=== PATIENT | male | born 1960 | race Caucasian/White ===

== ENCOUNTER → 2018-12-15 | Outpatient (CLI) | payer BC ==
--- NOTE | 2018-12-15 19:32 | Diagnostic Imaging Report ---
EXAMINATION: Left ribs at 04:17 p.m. INDICATION: Fell, rib pain. FINDINGS: Three views were obtained. There are no prior studies available for comparison. There is a slightly displaced fracture of the mid portion of the left seventh rib. There is also a nondisplaced fracture of the mid portion of the left sixth rib at the same level. There may be a nondisplaced fracture of the left fifth rib as well. No other rib fracture is identified. There is mild atelectasis/infiltrate in the left lung base and perhaps a small amount of fluid. There is no sign of a pneumothorax however. IMPRESSION: 1. There are fractures of the left sixth and seventh ribs and perhaps of the left fifth rib. There is no acute bony abnormality noted otherwise. 2. There is mild left lower lobe atelectasis/infiltrate and fluid, but there is no sign of a pneumothorax. Dictated by: Dictated on workstation # [id number]
--- NOTE | 2018-12-15 19:34 | Diagnostic Imaging Report ---
EXAMINATION: Thoracic spine. INDICATION: Fell, back pain. FINDINGS: AP, lateral, and swimmer's views were obtained. There are no prior studies available for comparison. This study is less than optimal as the exam is underpenetrated. There is no fracture or acute bony abnormality evident. There is moderate degenerative disc disease throughout the thoracic spine. There is no paraspinal mass visualized. IMPRESSION: 1. There is no evidence for an acute bony abnormality. 2. If clinical concern regarding an underlying abnormality persists, then MRI will be recommended for further study. Dictated by: Dictated on workstation # [id number]
== END ==
LOC: RAD 15:55
PROVIDERS: ATTEND Family Medicine
DX: S22.42XA Multiple fractures of ribs, left side, initial encounter for closed fracture (principal); M54.6 Pain in thoracic spine; W19.XXXA Unspecified fall, initial encounter
CPT/HCPCS: 71100; 72072

== ENCOUNTER 2020-06-09 13:10 | Outpatient (RCR) | payer OTHER | END 2020-06-26 15:15 | disposition home or self-care (01) | PROVIDERS: ATTEND Family Medicine | DX: M25.511 Pain in right shoulder (principal) ==

== ENCOUNTER → 2021-02-20 | Outpatient (CLI) | payer OTHER ==
--- NOTE | 2021-02-20 11:58 | Diagnostic Imaging Report ---
INDICATION: Chronic lower back pain. Radiation down the left leg. COMPARISON: None FINDINGS: Frontal and lateral radiographic views of the lumbar spine were obtained. Evaluation of static alignment shows slight levoscoliotic deformity. AP static alignment is maintained. There is no evidence of jumped facets. No significant arash- or retrolisthesis is seen. Vertebral body heights are maintained. There is no evidence acute fracture. There are multilevel degenerative changes consistent with intervertebral disc height loss. Multiple prominent bridging lateral endplate osteophyte formations are also noted. There is also multilevel facet arthropathy, greatest within the lower lumbar spine. No unexpected radiopaque foreign bodies are seen. IMPRESSION: 1. No acute fracture or dislocation in the lumbar spine. 2. Moderate multilevel degenerative changes. Dictated by: Dictated on workstation # [id number]
== END ==
LOC: RAD 11:07
PROVIDERS: ATTEND Family Medicine
DX: M47.816 Spondylosis without myelopathy or radiculopathy, lumbar region (principal)
CPT/HCPCS: 72100

== ENCOUNTER → 2022-03-15 | Outpatient (CLI) | payer OTHER ==
--- NOTE | 2022-03-15 11:12 | Diagnostic Imaging Report ---
INDICATION: Lower back pain. Thoracic pain. Scoliosis. COMPARISON: None FINDINGS: Frontal, lateral, and open-mouth radiographic views of the cervical spine were obtained. Cervical spine is seen down to the C6-C7 level on the lateral view. C7-T1 level is obscured. Static alignment is maintained. There is no significant anteroretrolisthesis. There is no evidence of jumped facets. Open-mouth view shows normal C1-C2 alignment. Visualized portions of the cervical spine show preservation of normal vertebral body heights. There is no convincing evidence of acute fracture. Multilevel degenerative changes are noted and consistent with intervertebral disc height loss with endplate osteophyte formations. There is also facet arthropathy. Included portions of the lung apices are clear. Note is made of calcified carotid atherosclerosis. IMPRESSION: 1. No acute fracture or dislocation of the cervical spine with limitations as above. 2. Multilevel degenerative changes. Dictated by: Dictated on workstation # [id number]
--- NOTE | 2022-03-15 11:16 | Diagnostic Imaging Report ---
INDICATION: Back pain. History of scoliosis. COMPARISON: 02/20/2021 FINDINGS: Multiple radiographic views of the lumbar spine were obtained. Evaluation of static alignment and again demonstrates slight levoscoliotic deformity. AP static alignment is maintained. There is no significant anteroretrolisthesis. There is no evidence of jumped facets. Vertebral body heights are maintained. There is no acute fracture. Multilevel degenerative changes are again noted and consistent primarily of intervertebral disc height loss and facet arthropathy, greatest at the L4-L5 and L5-S1 levels. Note is also again made of multilevel bridging lateral endplate osteophyte formations. There is also suggestion of annular calcification anteriorly. While findings may be degenerative in nature, this also raises concern for potential ankylosing spondylitis. IMPRESSION: 1. No acute fracture or dislocation of the lumbar spine. 2. Multilevel degenerative changes. 3. Findings suspicious for possible ankylosing spondylitis. Dictated by: Dictated on workstation # [id number]
--- NOTE | 2022-03-15 11:17 | Diagnostic Imaging Report ---
INDICATION: Lower back pain. Scoliosis. COMPARISON: 12/15/2018 FINDINGS: Multiple radiographic views of the lumbar spine were obtained. Evaluation of static alignment shows exaggeration of the kyphotic curvature of the thoracic spine, which may be degenerative in nature. Vertebral body heights are maintained. There is no evidence of acute fracture. There is no evidence of jumped facets. Moderate multilevel intervertebral disc height loss is again noted. Included portions of the lungs are clear. IMPRESSION: 1. No acute fracture or dislocation of the thoracic spine. 2. Moderate multilevel degenerative changes. Dictated by: Dictated on workstation # [id number]
== END ==
LOC: RAD 09:24
PROVIDERS: ATTEND Family Medicine
DX: M47.814 Spondylosis without myelopathy or radiculopathy, thoracic region (principal); M47.816 Spondylosis without myelopathy or radiculopathy, lumbar region; M47.812 Spondylosis without myelopathy or radiculopathy, cervical region
CPT/HCPCS: 72040; 72072; 72100

== ENCOUNTER → 2022-04-09 | Outpatient (CLI) | payer OTHER ==
--- NOTE | 2022-04-09 15:45 | Diagnostic Imaging Report ---
PROCEDURE: US carotid duplex, bilateral. TECHNIQUE: Multiple real-time grayscale images were obtained over the carotid arteries in various projections, bilaterally. Additional spectral analysis and color Doppler duplex images were also obtained. INDICATION: Calcified carotid atherosclerosis seen on prior radiograph Parameters based on the consensus panel Lieberman-Scale and Doppler ultrasound criteria published July 2003, Radiology, Volume 229. DOPPLER (peak systolic velocity M/S Right Left CCA 0.84 1.03 ICA Proximal 0.75 0.51 ICA Mid 0.64 0.52 ICA Distal 0.76 0.60 RATIO 0.91 0.58 ECA 0.80 0.69 VERT 0.36 0.72 There are calcifications within the carotid bulbs and bifurcations extending into the internal carotid arteries. Waveforms are normal. Normal antegrade flow within both vertebral arteries. IMPRESSION: Atherosclerosis with less than 50% stenosis of the bilateral internal carotid arteries by velocity and ratio criteria. Dictated by: Dictated on workstation # [id number]
== END ==
LOC: RAD 12:30
PROVIDERS: ATTEND Family Medicine
DX: I65.23 Occlusion and stenosis of bilateral carotid arteries (principal)
CPT/HCPCS: 93880